=== PATIENT | female | born 1980 | race Caucasian/White ===

== ENCOUNTER 2017-01-11 22:18 | Emergency (ER) | payer OTHER ==
[~2017-01-11] VITALS: Ht 157.5 cm; Wt 60.9 kg
[~2017-01-11 22:18] MED LIST: ADVIL COLD &1 TABLET PO; ALBUTEROL SULF8.5 GM IH; ALLEGRA ALLERG180 MG PO; ATARAX,VISTARIL25 MG PO; AUGMENTIN875 MG PO; BENADRYL25 MG PO; BUSPAR10 MG PO; CELEXA10 MG PO; CLEOCIN300 MG PO; CLINDAMYCIN HC300 MG PO; CLONAZEPAM0.5 MG PO; CYMBALTA30 MG PO; CYMBALTA60 MG PO; DOXYCYCLINE HY100 MG PO; DULOXETINE HCL30 MG PO; ENDOCET 5-3251 EACH PO; EPIPEN ADU0.3 MG/0.3 IM; EXCEDRIN EXTRA1 EACH PO; FEXOFENADINE H180 MG PO; FIORICET 50-321 EAC1 PO; FIORICET,ESG1 TABLET PO; FLEXERIL10 MG PO; HYDROCODON-ACE1 EAC7 PO; IBUPROFEN600 MG PO; IMITREX; KLONOPIN0.5 M1 PO; KLONOPIN1 MG PO; LEVAQUIN500 MG PO; LORTAB 5-325 M1 EACH PO; MECLIZINE HCL25 MG PO; MEDROL DOSEPAK4 MG PO; MELATONIN5 M1 PO; MELOXICAM7.5 MG PO; MOBIC15 MG PO; MONISTAT 7 COM1 EACH; MOTION SICKNESS25 M1 PO; MOTRIN IB200 MG; MOTRIN IB200 MG PO; MOTRIN600 MG PO; MOTRIN800 MG PO; NAPROSYN500 MG PO; NAPROXEN500 MG PO; NEURONTIN300 MG PO; NOHOMEMEDS; PERCOCET 10/1 TABLET PO; PERCOCET 5/31 TABLET PO; PRAZOSIN HCL1 MG PO; PREDNISONE20 MG PO; REGLAN10 MG PO; RELPAX20 MG PO; RISPERDAL0.25 MG PO; RISPERDAL1 MG PO; RISPERIDONE0.5 MG PO; SEROQUEL50 MG PO; SKELAXIN800 MG PO; SOMA350 MG PO; SUDAFED30 MG PO; TESSALON200 MG PO; TIZANIDINE HCL2 M1 PO; TIZANIDINE HCL2 MG PO; TOBREX5 ML LEFT EYE; TRAMADOL HCL50 MG PO; TYLENOL REGULA325 MG PO; VAGINAL ITCH CR30 GM; VALIUM2 MG PO; VICODIN 5-3001 EACH PO; VICODIN 5-5001 EACH PO; VITAMIN B-122000 MC1 PO; WELLBUTRIN SR100 MG PO; WELLBUTRIN XL300 MG PO; ZOFRAN ODT4 MG PO; ZOFRAN4 MG PO; ZOLOFT50 MG PO
[2017-01-12] MEDS ORDERED: ZANAFLEX2 MG PO (00:40)
[2017-01-12] MEDS ORDERED: NORCO 5/3251 TABLET PO (00:40)
[2017-01-12 00:46] VITALS: BP 100/68
== END 2017-01-12 00:48 | disposition home or self-care (01) ==
LOC: EME 22:18
DX: M25.551 Pain in right hip (principal); F17.200 Nicotine dependence, unspecified, uncomplicated
CPT/HCPCS: 73502; 99281; 99284; J3301

== ENCOUNTER 2017-04-11 22:05 | Emergency (ER) | payer OTHER ==
[~2017-04-11] VITALS: Ht 157.5 cm; Wt 66.2 kg
[~2017-04-11 22:05] MED LIST changes: +NORCO 5/3251 TABLET PO; +ZANAFLEX2 MG PO
[2017-04-11] MEDS ORDERED: VIBRAMYCIN100 MG PO (23:31)
[2017-04-11] MEDS ORDERED: INDOCIN50 MG PO (23:31)
[2017-04-11] MEDS ORDERED: LIDOCAINE20 MG/1 M5 PO (23:31)
[2017-04-11 23:52] VITALS: BP 114/82
== END 2017-04-11 23:54 | disposition home or self-care (01) ==
LOC: RME 22:05 → EME 22:05 → RME 23:54
PROC: 0C95XZZ Drainage of Upper Gingiva, External Approach (ICD-10-PCS; principal; 2017-04-11)
DX: K04.7 Periapical abscess without sinus (principal); L02.01 Cutaneous abscess of face; L03.211 Cellulitis of face; F32.9 Major depressive disorder, single episode, unspecified; F43.10 Post-traumatic stress disorder, unspecified; Z86.14 Personal history of Methicillin resistant Staphylococcus aureus infection; F17.200 Nicotine dependence, unspecified, uncomplicated; Z88.0 Allergy status to penicillin
CPT/HCPCS: 87070; 87075; 87205; 99281; 99284

== ENCOUNTER 2017-07-07 18:12 | Emergency (ER) | payer OTHER ==
[~2017-07-07] VITALS: Ht 157.5 cm; Wt 61.1 kg
[~2017-07-07 18:12] MED LIST changes: +INDOCIN50 MG PO; +LIDOCAINE20 MG/1 M5 PO; +VIBRAMYCIN100 MG PO
[2017-07-07 19:16] LABS: HEMATOCRIT 39.8 % (36.0-46.0); MCH 30.2 PG (29.0-34.0); MCHC 33.2 G/DL (30.0-36.0); MCV 91.1 FL (83-99); MEAN PLAT.VOLUME 11.5 uM^3 (9.5-12.4); PLATELET COUNT 339 K/uL (156-360); RBC DIS.WIDTH-SD 46.7 % (39-53); RED BLOOD COUNT 4.37 M/uL (3.80-5.20); WHITE BLOOD COUNT 12.9 K/uL (4.1-10.2)
[2017-07-07 19:35] LABS: CHLORIDE 107 mEq/L (99-109); POTASSIUM 3.3 mEq/L (3.7-5.4); SODIUM 140 mEq/L (136-147)
[2017-07-07 19:38] LABS: GLUCOSE 85 mg/dL (70-99)
[2017-07-07 19:39] LABS: ANION GAP 11 MEQ/L (2-14)
[2017-07-07 19:40] LABS: TOTAL BILIRUBIN 0.5 mg/dL (0.0-1.0)
[2017-07-07 19:41] LABS: ALKALINE PHOSPHATASE 110 IU/L (3-129); GFR ESTIMATE (CALCULATED) > 59 mL/min/; QUANTITATIVE HCG < 4.0 MIU/ML
[2017-07-07 19:42] LABS: UREA NITROGEN (BUN) 8 mg/dL (9-23)
[2017-07-07 19:52] LABS: ADD MIUA? YES; BILIRUBIN NEGATIVE; BLOOD NEGATIVE; COLOR YELLOW ((YELLOW)); GLUCOSE (STRIP) NEGATIVE; KETONES NEGATIVE; LEUKOCYTES LARGE; NITRITE NEGATIVE; PROTEIN (STRIP) NEGATIVE; SPECIFIC GRAVITY 1.011 (1.000-1.030); UROBILINOGEN 0.2 MG/DL (0.2-1.0)
[2017-07-07 19:59] LABS: BACTERIA RARE /HPF; EPITHELIAL CELLS 1+ /HPF; MUCUS TRACE /LPF; UCUL ADDED? YES; WHITE BLOOD CELLS 15-20 /HPF (0-5)
[2017-07-07] MEDS ORDERED: PERCOCET 5/31 TABLET PO (22:56)
[2017-07-07] MEDS ORDERED: MOTRIN600 MG PO (22:56)
[2017-07-07 23:26] VITALS: BP 129/86
== END 2017-07-07 23:26 | disposition home or self-care (01) ==
LOC: EME 18:12
DX: R10.9 Unspecified abdominal pain (principal); F90.9 Attention-deficit hyperactivity disorder, unspecified type; F41.9 Anxiety disorder, unspecified; Z88.0 Allergy status to penicillin; Z88.8 Allergy status to other drugs, medicaments and biological substances; Z91.040 Latex allergy status; F17.200 Nicotine dependence, unspecified, uncomplicated
CPT/HCPCS: 74176; 80053; 81003; 84702; 85027; 87086; 99281; 99283

== ENCOUNTER 2017-08-26 23:52 | Emergency (ER) | payer OTHER ==
[~2017-08-26] VITALS: Ht 157.5 cm; Wt 59.7 kg
[~2017-08-26 23:52] MED LIST changes: +ACULAR 0.5100 DROP/5 BOTH EYES; +ERYTHROMYC1 APPLICAT BOTH EYES
[2017-08-27 00:02] VITALS: BP 128/101
[2017-08-27] MEDS ORDERED: MEDROL DOSEPAK4 MG PO (01:03)
== END 2017-08-27 01:32 | disposition home or self-care (01) ==
LOC: EME 23:52 → EXP 23:52
DX: M54.16 Radiculopathy, lumbar region (principal); F17.200 Nicotine dependence, unspecified, uncomplicated; Z88.0 Allergy status to penicillin; Z88.5 Allergy status to narcotic agent; Z88.2 Allergy status to sulfonamides
CPT/HCPCS: 99281; 99284; J1100

== ENCOUNTER 2017-09-07 07:09 | Emergency (ER) | payer OTHER ==
[~2017-09-07] VITALS: Ht 157.5 cm; Wt 62.7 kg
[2017-09-07 07:11] VITALS: BP 137/81
== END 2017-09-07 08:05 | disposition home or self-care (01) ==
LOC: EME 07:09
DX: K14.6 Glossodynia (principal); T49.6X1A Poisoning by otorhinolaryngological drugs and preparations, accidental (unintentional), initial encounter; T28.5XXA Corrosion of mouth and pharynx, initial encounter; F41.9 Anxiety disorder, unspecified; F32.9 Major depressive disorder, single episode, unspecified; F43.10 Post-traumatic stress disorder, unspecified; Z88.2 Allergy status to sulfonamides; Z88.0 Allergy status to penicillin; Z88.5 Allergy status to narcotic agent; Z88.1 Allergy status to other antibiotic agents; Z88.8 Allergy status to other drugs, medicaments and biological substances
CPT/HCPCS: 99281; 99283

== ENCOUNTER 2017-11-09 23:59 | Emergency (ER) | payer OTHER ==
[~2017-11-09] VITALS: Ht 157.5 cm; Wt 59.0 kg
[2017-11-10 00:06] VITALS: BP 123/88
[2017-11-11] MEDS ORDERED: ROBITUSSIN AC,T10 ML PO (02:10)
[2017-11-11] MEDS ORDERED: VENTOLIN HFA18 GM IH (02:10)
== END 2017-11-10 01:28 | disposition home or self-care (01) ==
LOC: EME 23:59
DX: S93.401A Sprain of unspecified ligament of right ankle, initial encounter (principal); Y04.0XXA Assault by unarmed brawl or fight, initial encounter; Z88.5 Allergy status to narcotic agent; Z88.0 Allergy status to penicillin; Z88.2 Allergy status to sulfonamides; Z88.1 Allergy status to other antibiotic agents; Z88.6 Allergy status to analgesic agent; Z88.8 Allergy status to other drugs, medicaments and biological substances
CPT/HCPCS: 73610; 99281; 99284

== ENCOUNTER 2017-11-11 00:24 | Emergency (ER) | payer OTHER ==
[~2017-11-11] VITALS: Ht 157.5 cm; Wt 59.0 kg
[2017-11-11] MEDS ORDERED: VENTOLIN HFA18 GM IH (02:10)
[2017-11-11] MEDS ORDERED: ROBITUSSIN AC,T10 ML PO (02:10)
[2017-11-11 02:24] VITALS: BP 130/78
== END 2017-11-11 02:25 | disposition home or self-care (01) ==
LOC: EME 00:24
DX: J20.9 Acute bronchitis, unspecified (principal); F17.200 Nicotine dependence, unspecified, uncomplicated; Z88.5 Allergy status to narcotic agent; Z88.0 Allergy status to penicillin; Z88.2 Allergy status to sulfonamides; Z88.1 Allergy status to other antibiotic agents; Z88.6 Allergy status to analgesic agent; Z88.8 Allergy status to other drugs, medicaments and biological substances; Z91.040 Latex allergy status
CPT/HCPCS: 71046; 94640; 99281; 99283

== ENCOUNTER 2017-12-30 03:09 | Emergency (ER) | payer OTHER ==
[~2017-12-30] VITALS: Ht 157.5 cm; Wt 66.0 kg
[~2017-12-30 03:09] MED LIST changes: +ROBITUSSIN AC,T10 ML PO; +VENTOLIN HFA18 GM IH
[2017-12-30 05:46] LABS: CHLORIDE 112 mEq/L (99-109); POTASSIUM 3.7 mEq/L (3.7-5.4); SODIUM 140 mEq/L (136-147)
[2017-12-30 05:48] LABS: GLUCOSE 88 mg/dL (70-99)
[2017-12-30 05:51] LABS: CREATININE 0.8 mg/dL (0.6-1.3); GFR ESTIMATE (CALCULATED) > 59 mL/min/
[2017-12-30 05:52] LABS: UREA NITROGEN (BUN) 14 mg/dL (9-23)
[2017-12-30 05:55] LABS: HEMATOCRIT 34.6 % (36.0-46.0); HEMOGLOBIN 11.5 G/DL (11.9-15.5); MCH 31.4 PG (29.0-34.0); MCHC 33.2 G/DL (30.0-36.0); MCV 94.5 FL (83-99); RBC DIS.WIDTH-CV 14.4 % (11.8-14.6); RBC DIS.WIDTH-SD 49.9 % (39-53); RED BLOOD COUNT 3.66 M/uL (3.80-5.20); WHITE BLOOD COUNT 16.7 K/uL (4.1-10.2)
[2017-12-30 06:00] LABS: QUANTITATIVE HCG < 4.0 MIU/ML
[2017-12-30 06:46] VITALS: BP 118/82
[2017-12-30 06:58] LABS: PLAT.SUFFICIENCY INCREASED; PLATELET COUNT 356 K/uL (156-360)
== END 2017-12-30 06:46 | disposition home or self-care (01) ==
LOC: EME 03:09
PROVIDERS: Nurse Practitioner Family
DX: H40.10X0 Unspecified open-angle glaucoma, stage unspecified (principal); F17.200 Nicotine dependence, unspecified, uncomplicated; Z88.5 Allergy status to narcotic agent; Z88.2 Allergy status to sulfonamides; Z88.0 Allergy status to penicillin; Z88.1 Allergy status to other antibiotic agents; Z88.6 Allergy status to analgesic agent; Z88.8 Allergy status to other drugs, medicaments and biological substances; Z91.040 Latex allergy status
CPT/HCPCS: 70481; 80048; 84439; 84443; 84702; 85027; 99281; 99283

== ENCOUNTER 2018-01-03 22:52 | Emergency (ER) | payer OTHER ==
[~2018-01-03] VITALS: Ht 157.5 cm; Wt 65.1 kg
[2018-01-03 23:38] LABS: HEMATOCRIT 38.5 % (36.0-46.0); HEMOGLOBIN 12.8 G/DL (11.9-15.5); MCH 30.9 PG (29.0-34.0); MCHC 33.2 G/DL (30.0-36.0); PLATELET COUNT 419 K/uL (156-360); RBC DIS.WIDTH-CV 14.5 % (11.8-14.6); RBC DIS.WIDTH-SD 48.9 % (39-53); RED BLOOD COUNT 4.14 M/uL (3.80-5.20); WHITE BLOOD COUNT 15.8 K/uL (4.1-10.2)
[2018-01-03 23:51] LABS: CHLORIDE 109 mEq/L (99-109); POTASSIUM 3.8 mEq/L (3.7-5.4); SODIUM 138 mEq/L (136-147)
[2018-01-03 23:53] LABS: GLUCOSE 72 mg/dL (70-99)
[2018-01-03 23:57] LABS: CREATININE 0.8 mg/dL (0.6-1.3); GFR ESTIMATE (CALCULATED) > 59 mL/min/
[2018-01-03 23:58] LABS: UREA NITROGEN (BUN) 12 mg/dL (9-23)
[2018-01-04 00:01] LABS: TROP-I INTERPRETATION NEGATIVE; TROPONIN-I < 0.01 ng/mL (0.0-0.30)
[2018-01-04 00:30] VITALS: BP 104/70
== END 2018-01-04 01:33 | disposition home or self-care (01) ==
LOC: EME 22:52
DX: M25.571 Pain in right ankle and joints of right foot (principal); G89.29 Other chronic pain; G47.9 Sleep disorder, unspecified; F41.9 Anxiety disorder, unspecified; F32.9 Major depressive disorder, single episode, unspecified; F17.200 Nicotine dependence, unspecified, uncomplicated; Z88.0 Allergy status to penicillin; Z88.2 Allergy status to sulfonamides; Z88.5 Allergy status to narcotic agent; Z88.8 Allergy status to other drugs, medicaments and biological substances
CPT/HCPCS: 71046; 80048; 84484; 85027; 93005; 99281; 99283

== ENCOUNTER 2018-03-11 03:13 | Emergency (ER) | payer OTHER ==
[~2018-03-11] VITALS: Ht 157.5 cm; Wt 64.3 kg
[2018-03-11 03:58] LABS: HEMATOCRIT 38.4 % (36.0-46.0); HEMOGLOBIN 13.1 G/DL (11.9-15.5); MCH 30.6 PG (29.0-34.0); MCHC 34.1 G/DL (30.0-36.0); MCV 89.7 FL (83-99); PLATELET COUNT 335 K/uL (156-360); RBC DIS.WIDTH-CV 14.2 % (11.8-14.6); RBC DIS.WIDTH-SD 46.8 % (39-53); RED BLOOD COUNT 4.28 M/uL (3.80-5.20); WHITE BLOOD COUNT 16.3 K/uL (4.1-10.2)
[2018-03-11 04:27] LABS: ALBUMIN 4.3 g/dL (3.2-4.8)
[2018-03-11 04:28] LABS: CHLORIDE 109 mEq/L (99-109); POTASSIUM 3.5 mEq/L (3.7-5.4); SODIUM 138 mEq/L (136-147)
[2018-03-11 04:30] LABS: GLUCOSE 87 mg/dL (70-99); TOTAL PROTEIN 7.5 g/dL (6.4-8.3)
[2018-03-11 04:32] LABS: TOTAL BILIRUBIN 0.5 mg/dL (0.0-1.0)
[2018-03-11 04:33] LABS: ALKALINE PHOSPHATASE 101 IU/L (3-129)
[2018-03-11 04:34] LABS: GFR ESTIMATE (CALCULATED) > 59 mL/min/
[2018-03-11 04:35] LABS: AST (GOT) 12 IU/L (2-34); UREA NITROGEN (BUN) 8 mg/dL (9-23)
[2018-03-11 04:36] LABS: ALT (GPT) 10 IU/L (3-49)
[2018-03-11 04:37] LABS: LIPASE 11 U/L (1.0-51.0)
[2018-03-11 04:45] LABS: QUANTITATIVE HCG < 4.0 MIU/ML
[2018-03-11 05:56] LABS: APPEARANCE CLEAR ((CLEAR)); BILIRUBIN NEGATIVE; BLOOD NEGATIVE; COLOR YELLOW ((YELLOW)); GLUCOSE (STRIP) NEGATIVE; KETONES NEGATIVE; LEUKOCYTES NEGATIVE; NITRITE NEGATIVE; PROTEIN (STRIP) 30; SPECIFIC GRAVITY 1.023 (1.000-1.030); UCUL ADDED? NO; UROBILINOGEN 0.2 MG/DL (0.2-1.0)
[2018-03-11] MEDS ORDERED: NAPROSYN500 MG PO (06:02)
[2018-03-11] MEDS ORDERED: PERCOCET 5/31 TABLET PO (06:03)
[2018-03-11 06:16] VITALS: BP 112/79
== END 2018-03-11 06:25 | disposition home or self-care (01) ==
LOC: EME 03:13
PROVIDERS: Emergency Medicine
DX: N83.202 Unspecified ovarian cyst, left side (principal); D72.829 Elevated white blood cell count, unspecified; R10.2 Pelvic and perineal pain; F17.200 Nicotine dependence, unspecified, uncomplicated; Z98.51 Tubal ligation status; Z88.2 Allergy status to sulfonamides; Z88.0 Allergy status to penicillin; Z88.5 Allergy status to narcotic agent; Z88.8 Allergy status to other drugs, medicaments and biological substances
CPT/HCPCS: 76856; 80053; 81003; 83690; 84702; 85027; 86850; 86900; 86901; 99281; 99285; J1885; J2405; J3010; J7030

== ENCOUNTER 2018-03-12 02:49 | Emergency (ER) | payer OTHER ==
[~2018-03-12] VITALS: Ht 157.5 cm; Wt 65.9 kg
[2018-03-12 05:50] LABS: HEMATOCRIT 34.8 % (36.0-46.0); HEMOGLOBIN 11.9 G/DL (11.9-15.5); MCH 31.2 PG (29.0-34.0); MCHC 34.2 G/DL (30.0-36.0); MCV 91.1 FL (83-99); PLATELET COUNT 312 K/uL (156-360); RBC DIS.WIDTH-CV 14.5 % (11.8-14.6); RBC DIS.WIDTH-SD 47.8 % (39-53); RED BLOOD COUNT 3.82 M/uL (3.80-5.20); WHITE BLOOD COUNT 11.8 K/uL (4.1-10.2)
[2018-03-12 06:05] LABS: CHLORIDE 108 mEq/L (99-109); POTASSIUM 3.9 mEq/L (3.7-5.4); SODIUM 137 mEq/L (136-147)
[2018-03-12 06:06] LABS: GLUCOSE 77 mg/dL (70-99)
[2018-03-12 06:10] LABS: CREATININE 0.9 mg/dL (0.6-1.3); GFR ESTIMATE (CALCULATED) > 59 mL/min/
[2018-03-12 06:11] LABS: UREA NITROGEN (BUN) 10 mg/dL (9-23)
[2018-03-12 06:18] LABS: QUANTITATIVE HCG < 4.0 MIU/ML
[2018-03-12 09:24] VITALS: BP 113/72
[2018-03-13] MEDS ORDERED: PERCOCET 5/31 TABLET PO (03:29)
== END 2018-03-12 09:28 | disposition home or self-care (01) ==
LOC: EME 02:49
PROVIDERS: Emergency Medicine
DX: R10.32 Left lower quadrant pain (principal); N83.202 Unspecified ovarian cyst, left side; F17.200 Nicotine dependence, unspecified, uncomplicated; G89.29 Other chronic pain; Z88.2 Allergy status to sulfonamides; Z88.0 Allergy status to penicillin
CPT/HCPCS: 76856; 80048; 84702; 85027; 86850; 86900; 86901; 99281; 99285; J2405; J3010; J7030

== ENCOUNTER 2018-03-13 00:40 | Emergency (ER) | payer OTHER ==
[~2018-03-13] VITALS: Ht 160 cm; Wt 65.1 kg
[2018-03-13 01:27] LABS: HEMATOCRIT 34.6 % (36.0-46.0); HEMOGLOBIN 11.7 G/DL (11.9-15.5); MCH 30.7 PG (29.0-34.0); MCHC 33.8 G/DL (30.0-36.0); MCV 90.8 FL (83-99); RBC DIS.WIDTH-CV 14.3 % (11.8-14.6); RBC DIS.WIDTH-SD 47.7 % (39-53); RED BLOOD COUNT 3.81 M/uL (3.80-5.20); WHITE BLOOD COUNT 16.2 K/uL (4.1-10.2)
[2018-03-13 01:38] LABS: CHLORIDE 110 mEq/L (99-109); POTASSIUM 3.6 mEq/L (3.7-5.4); SODIUM 137 mEq/L (136-147)
[2018-03-13 01:41] LABS: GLUCOSE 77 mg/dL (70-99); TOTAL PROTEIN 6.7 g/dL (6.4-8.3)
[2018-03-13 01:44] LABS: ALKALINE PHOSPHATASE 91 IU/L (3-129); CREATININE 0.9 mg/dL (0.6-1.3); GFR ESTIMATE (CALCULATED) > 59 mL/min/
[2018-03-13 01:45] LABS: UREA NITROGEN (BUN) 9 mg/dL (9-23)
[2018-03-13 01:46] LABS: AST (GOT) 14 IU/L (2-34); DIRECT BILIRUBIN 0.2 mg/dL (0.0-0.3)
[2018-03-13 01:47] LABS: ALT (GPT) 10 IU/L (3-49)
[2018-03-13 01:48] LABS: LIPASE 8 U/L (1.0-51.0)
[2018-03-13 01:54] LABS: TOTAL BILIRUBIN 0.3 mg/dL (0.0-1.0)
[2018-03-13 02:34] LABS: PLAT.SUFFICIENCY ADEQUATE; PLATELET COUNT 309 K/uL (156-360)
[2018-03-13 02:37] LABS: APPEARANCE CLOUDY ((CLEAR)); BILIRUBIN NEGATIVE; BLOOD NEGATIVE; COLOR YELLOW ((YELLOW)); GLUCOSE (STRIP) NEGATIVE; KETONES NEGATIVE; LEUKOCYTES LARGE; NITRITE NEGATIVE; PROTEIN (STRIP) NEGATIVE; SPECIFIC GRAVITY 1.013 (1.000-1.030); UROBILINOGEN 0.2 MG/DL (0.2-1.0)
[2018-03-13 02:43] LABS: BACTERIA RARE /HPF; EPITHELIAL CELLS 4+ /HPF; MUCUS TRACE /LPF; UCUL ADDED? YES; WHITE BLOOD CELLS 15-20 /HPF (0-5)
[2018-03-13] MEDS ORDERED: PERCOCET 5/31 TABLET PO (03:29)
[2018-03-13 03:30] VITALS: BP 110/75
== END 2018-03-13 03:40 | disposition left against medical advice (07) ==
LOC: EME 00:40
PROVIDERS: Emergency Medicine
DX: N83.12 Corpus luteum cyst of left ovary (principal); R71.0 Precipitous drop in hematocrit; R10.12 Left upper quadrant pain; R11.0 Nausea; Z88.0 Allergy status to penicillin; Z88.2 Allergy status to sulfonamides; F17.200 Nicotine dependence, unspecified, uncomplicated; Z53.20 Procedure and treatment not carried out because of patient's decision for unspecified reasons
CPT/HCPCS: 74177; 80048; 80076; 81003; 83690; 85027; 87086; 99281; 99284; J1885; J7030

== ENCOUNTER → 2018-03-21 | Emergency (ER) | payer OTHER ==
[~2018-03-21] VITALS: Ht 157.5 cm; Wt 64.7 kg
[2018-03-21 05:21] LABS: ALBUMIN 4.3 g/dL (3.2-4.8)
[2018-03-21 05:22] LABS: CHLORIDE 107 mEq/L (99-109); SODIUM 142 mEq/L (136-147)
[2018-03-21 05:24] LABS: GLUCOSE 79 mg/dL (70-99); TOTAL PROTEIN 7.4 g/dL (6.4-8.3)
[2018-03-21 05:26] LABS: TOTAL BILIRUBIN 0.2 mg/dL (0.0-1.0)
[2018-03-21 05:27] LABS: ALKALINE PHOSPHATASE 98 IU/L (3-129)
[2018-03-21 05:28] LABS: CREATININE 0.9 mg/dL (0.6-1.3); GFR ESTIMATE (CALCULATED) > 59 mL/min/
[2018-03-21 05:29] LABS: AST (GOT) 12 IU/L (2-34); UREA NITROGEN (BUN) 12 mg/dL (9-23)
[2018-03-21 05:30] LABS: ALT (GPT) 10 IU/L (3-49)
[2018-03-21 05:31] LABS: LIPASE 35 U/L (1.0-51.0)
[2018-03-21 05:34] LABS: HEMATOCRIT 35.9 % (36.0-46.0); HEMOGLOBIN 12.4 G/DL (11.9-15.5); MCH 31.5 PG (29.0-34.0); MCHC 34.5 G/DL (30.0-36.0); MCV 91.1 FL (83-99); PLATELET COUNT 391 K/uL (156-360); RBC DIS.WIDTH-CV 14.6 % (11.8-14.6); RBC DIS.WIDTH-SD 49.1 % (39-53); RED BLOOD COUNT 3.94 M/uL (3.80-5.20); WHITE BLOOD COUNT 15.7 K/uL (4.1-10.2)
[2018-03-21 05:37] LABS: QUANTITATIVE HCG < 4.0 MIU/ML
[2018-03-21 07:56] VITALS: BP 105/70
== END | disposition home or self-care (01) ==
LOC: EME 04:19
PROVIDERS: Emergency Medicine
DX: N83.202 Unspecified ovarian cyst, left side (principal); N93.9 Abnormal uterine and vaginal bleeding, unspecified; R11.0 Nausea; Z88.8 Allergy status to other drugs, medicaments and biological substances; Z88.0 Allergy status to penicillin; F17.200 Nicotine dependence, unspecified, uncomplicated
CPT/HCPCS: 76856; 80053; 83690; 84702; 85027; 99281; 99284; J1885

== ENCOUNTER 2018-04-18 05:21 | Emergency (ER) | payer OTHER ==
[~2018-04-18] VITALS: Ht 157.5 cm; Wt 65.3 kg
[2018-04-18] MEDS ORDERED: FLEXERIL10 MG PO (07:49)
[2018-04-18] MEDS ORDERED: MOTRIN800 MG PO (07:49)
[2018-04-18 08:04] VITALS: BP 127/75
== END 2018-04-18 08:00 | disposition home or self-care (01) ==
LOC: EME 05:21
DX: M54.6 Pain in thoracic spine (principal); F17.210 Nicotine dependence, cigarettes, uncomplicated; F32.9 Major depressive disorder, single episode, unspecified; F41.9 Anxiety disorder, unspecified; Z88.8 Allergy status to other drugs, medicaments and biological substances; Z88.2 Allergy status to sulfonamides; Z88.0 Allergy status to penicillin; Z88.5 Allergy status to narcotic agent
CPT/HCPCS: 72070; 80053; 81003; 85027; 99281; 99284; J1885

== ENCOUNTER 2018-05-14 21:57 | Emergency (ER) | payer OTHER ==
[~2018-05-14] VITALS: Ht 157.5 cm; Wt 63.9 kg
[2018-05-14 23:47] LABS: INTER. NORMALIZED RATIO 1.1
[2018-05-14 23:49] LABS: ALBUMIN 4.3 g/dL (3.2-4.8); CHLORIDE 110 mEq/L (99-109); POTASSIUM 3.4 mEq/L (3.7-5.4); PTT 30.8 SEC (25-37); SODIUM 139 mEq/L (136-147)
[2018-05-14 23:51] LABS: GLUCOSE 142 mg/dL (70-99); TOTAL PROTEIN 7.7 g/dL (6.4-8.3)
[2018-05-14 23:53] LABS: TOTAL BILIRUBIN 0.3 mg/dL (0.0-1.0)
[2018-05-14 23:55] LABS: ALKALINE PHOSPHATASE 98 IU/L (3-129); CREATININE 0.9 mg/dL (0.6-1.3); GFR ESTIMATE (CALCULATED) > 59 mL/min/
[2018-05-14 23:56] LABS: AST (GOT) 11 IU/L (2-34); UREA NITROGEN (BUN) 7 mg/dL (9-23)
[2018-05-14 23:58] LABS: ALT (GPT) 11 IU/L (3-49)
[2018-05-15 00:01] LABS: HEMATOCRIT 34.7 % (36.0-46.0); HEMOGLOBIN 12.1 G/DL (11.9-15.5); MCH 30.9 PG (29.0-34.0); MCHC 34.9 G/DL (30.0-36.0); MCV 88.7 FL (83-99); RBC DIS.WIDTH-CV 14.6 % (11.8-14.6); RBC DIS.WIDTH-SD 46.6 % (39-53); RED BLOOD COUNT 3.91 M/uL (3.80-5.20); WHITE BLOOD COUNT 15.5 K/uL (4.1-10.2)
[2018-05-15 00:07] LABS: QUANTITATIVE HCG < 4.0 MIU/ML
[2018-05-15 01:13] LABS: PLAT.SUFFICIENCY ADEQUATE; PLATELET COUNT 393 K/uL (156-360)
[2018-05-15 02:02] VITALS: BP 127/84
[2018-05-15] MEDS ORDERED: MOTRIN800 MG PO (16:29)
[2018-05-15] MEDS ORDERED: PERCOCET 7.51 TABLET PO ×2 (16:32)
[2018-05-15] MEDS ORDERED: TOPAMAX50 MG PO ×2 (16:33→16:34)
[2018-05-15] MEDS ORDERED: DESYREL100 MG PO (16:34)
[2018-05-15] MEDS ORDERED: REXULTI2 MG PO (16:35)
[2018-05-15] MEDS ORDERED: VYVANSE20 MG PO (16:35)
[2018-05-15] MEDS ORDERED: EFFEXOR XR150 MG PO (16:35)
== END 2018-05-15 02:03 | disposition left against medical advice (07) ==
LOC: EME 21:57
PROVIDERS: Emergency Medicine
DX: R51 Headache (principal); Z53.20 Procedure and treatment not carried out because of patient's decision for unspecified reasons; F17.200 Nicotine dependence, unspecified, uncomplicated; Z88.2 Allergy status to sulfonamides; Z88.0 Allergy status to penicillin; Z88.5 Allergy status to narcotic agent
CPT/HCPCS: 70450; 80053; 84702; 85027; 85610; 85730; 99281; 99284; J1200; J2765; J3475; J7030